=== PATIENT | female | born 1965 ===

== ENCOUNTER 2024-03-30 15:05 | Emergency (ER) | payer MEDICAID, OTHER ==
[~2024-03-30] VITALS: Ht 162.6 cm; Wt 70.5 kg
[2024-03-30 15:20] VITALS: PULSE 61; RESP 17; O2SAT 97
--- NOTE | 2024-03-30 15:34 | ED.PDOC ---
Altered Mental Status HPI Comments 59 y.o female presents to the ED via EMS for an evaluation of a syncopal episode today. Patient reports she was at the [employer], began feeling hot and lightheaded and lost consciousness. Patient did have positive urine incontinence noted. Upon ED arrival, patient reports feeling better and lightheadedness has s ubsided. EMS gave 500mL bolus en route. Patient denies cardiac, endocrinology history, CVA or TIA. Patient denies any medical history. Patient's voice was unusual and states that her voice had changed approximately two months ago for unknown reasons. Patient denies any recent travel or new food sources. Vital signs were stable on arrival. Chief Complaint: Syncope Time Seen by MD: 15:30 Reviewed Notes: Nurses Notes, [employer] Chief Notes, Medications, Allergies Allergies: Coded Allergies: NO KNOWN ALLERGIES (Unverified , 03/30/24) Information Source: Patient, Emergency Med Personnel Mode of Arrival: EMS Severity: Moderate Timing: Minutes Duration: Minutes Prehospital treatment: None Quality: Decreased Alertness Recent: None History of: None Associated Signs and Symptoms: None Past Medical History PAST MEDICAL HISTORY: Denies Surgical History: Denies all surgeries Family History Family History: Reviewed,noncontributory to illness Social History Smoker: Non-Smoker Alcohol: Denies ETOH Use Drugs: Denies Drug Use Lives In: Home Constitutional: denies: chills, diaphoresis, fatigue, fever, malaise, sweats, weakness, others EENTM: denies: blurred vision, double vision, ear bleeding, ear discharge, ear drainage, ear pain, ear ringing, eye pain, eye redness, hearing loss, mouth pain, mouth swelling, nasal discharge, nose bleeding, nose congestion, nose pain, photophobia, tearing, throat pain, throat swelling, voice changes, others Respiratory: denies: cough, hemoptysis, orthopnea, SOB at rest, shortness of breath, SOB with excertion, stridor, wheezing, others Cardiovascular: reports: lightheadedness, syncope; denies: chest pain, dizzy spells, diaphoresis, Dyspnea on exertion, edema, irregular heart beat, left arm pain, palpitations, PND, others Gastrointestinal: denies: abdomen distended, abdominal pain, blood streaked bowels, constipated, diarrhea, dysphagia, difficulty swallowing, hematemesis, melena, nausea, poor appetite, poor fluid intake, rectal bleeding, rectal pain, vomiting, others Genitourinary: reports: incontinence (one episode urine ); denies: abnormal vagina bleeding, burning, dyspareunia, dysuria, flank pain, frequency, hematuria, pain, , vagina discharge, urgency, others Neurological: denies: dizziness, fainting, headache, left sided numbness, left sided weakness, numbness, paresthesia, pre-existing deficit, right sided numbness, right sided weakness, seizure, speech problems, tingling, tremors, weakness, others Musculoskeletal: denies: back pain, gout, joint pain, joint swelling, muscle pain, muscle stiffness, neck pain, others Integumetry: denies: bruises, change in color, change in hair/nails, dryness, laceration, lesions, lumps, rash, wounds, others Allergic/Immunocompromised: denies: Difficulty Healing, Frequent Infections, Hives, Itching, others Hematologic/Lymphatic: denies: anemia, blood clots, easy bleeding, easy bruising, swollen glands, others Endocrine: denies: excessive hunger, excessive sweating, excessive thirst, excessive urination, flushing, intolerance to cold, intolerance to heat, unexplained weight gain, unexplained weight loss, others Psychiatric: denies: anxiety, bipolar disorder, depression, hopeless, panic disorder, schizophrenia, sleepless, suicidal, others All Other Systems: Reviewed and Negative Physical Exam General Appearance: No Apparent Distress (Patient was in no distress at time of evaluation.), Normal HEENT: Head (Unremarkable cranial evaluation. No signs of trauma. No skull depressions or deformities.), Normal ENT Inspection, Pharynx Normal, TMs Normal, Other (Neck soft tissue was unremarkable for any definitive mass formation. No goiter appreciated. No signs of trauma.) Neck: Full Range of Motion, Non-Tender, Normal, Normal Inspection Respiratory: Chest Non-Tender, Lungs Clear, No Accessory Muscle Use, No Respiratory Distress, Normal Breath Sounds Cardiovascular: No Edema, No JVD, No Murmur, No Gallop, Normal Peripheral Pulses, Regular Rate/Rhythm Breast Exam: Deferred Gastrointestinal: No Organomegaly, Non Tender, No Pulsatile Mass, Normal Bowel Sounds, Soft Genitalia: Deferred Pelvic: Deferred Rectal: Deferred Extremities: No calf tenderness, Normal capillary refill, Normal inspection, Normal range of motion, Non-tender, No pedal edema Musculoskeletal : Apperance: Normal Neurologic: Alert, No Motor Deficits, Normal Affect, Normal Mood, No Sensory Deficits Cerebellar Function: Normal Reflexes: Normal Skin: Dry, Normal Color, Warm Lymphatic: No Adenopathy Was a procedure done? Was a procedure done?: No Differential Diagnosis (ALOC) Differential Diagnosis: Dehydration, Hypoxemia, Seizure, Closed Head Injury, CVA, Heart Failure, Other (Vasovagal, sepsis, acute coronary syndrome) Other Differential Diagnosis Hypotension X-Ray, Labs, Meds, VS Vital Signs Date Time Temp Pulse Resp B/P (MAP) Pulse Ox O2 Delivery O2 Flow Rate FiO2 03/30/24 20:00 98.8 78 15 125/65 (85) 97 98.8 03/30/24 19:23 Room Air* 0 21 03/30/24 19:23 99.3 81 12 125/65 (85) 98 99.3 03/30/24 19:00 79 17 125/65 (85) 96 03/30/24 17:00 68 17 115/62 (79) 98 03/30/24 16:03 63 03/30/24 15:25 65 03/30/24 15:20 94.7 63 19 106/61 (76) 98 03/30/24 15:20 98.4 61 17 107/63 (78) 97 98.4 03/30/24 15:20 61 17 97 Room Air* 0 21 Lab Test 03/30/24 20:47 03/30/24 15:39 03/30/24 14:33 Range/Units Urine Color Colorless Yellow Urine Clarity Clear Clear Urine pH 7.0 5.0-9.0 Urine Specific [place] 1.012 1.001-1.035 Urine Protein Negative Negative Urine Ketones Negative Negative Urine Blood Negative Negative /uL Urine Nitrite Negative Negative Urine Bilirubin Negative Negative Urine Urobilinogen Normal Negative mg/dL Urine Leukocyte Esterase Negative Negative /uL Urine RBC <1 0 - 4 /hpf Urine Microscopic WBC 2 0-5 /HPF Urine Squamous Epithelial Cells Few <5 /hpf Urine Bacteria Few H None Seen /hpf Urine Glucose Normal Normal mg/dL White Blood Count 7.3 4.4-10.8 10^3/uL Red Blood Count 4.26 4.0-5.20 10^6/uL Hemoglobin 13.2 12.2-16.2 g/dL Hematocrit 39.6 36.0-46.0 % Mean Corpuscular Volume 92.9 80.0-100.0 fL Mean Corpuscular Hemoglobin 30.8 28.0-32.0 pg Mean Corpuscular Hemoglobin Concent 33.2 32.0-36.0 g/dL Red Cell Distribution Width 14.0 11.8-14.3 % Platelet Count 236 140-450 10^3/uL Mean Platelet Volume 8.8 6.9-10.8 fL Neutrophils (%) (Auto) 69.2 37.0-80.0 % Lymphocytes (%) (Auto) 23.6 10.0-50.0 % Monocytes (%) (Auto) 5.7 0.0-12.0 % Eosinophils (%) (Auto) 0.9 0.0-7.0 % Basophils (%) (Auto) 0.6 0.0-2.0 % Neutrophils # (Auto) 5.0 1.6-8.6 10 ^3/uL Lymphocytes # (Auto) 1.7 0.4-5.4 10 ^3/uL Monocytes # (Auto) 0.4 0-1.3 10 ^3/uL Eosinophils # (Auto) 0.1 0-0.8 10 ^3/uL Basophils # (Auto) 0 0-0.2 10 ^3/uL Nucleated Red Blood Cells 0.0 % Sodium Level 144 136-145 mmol/L Potassium Level 3.7 3.5-5.1 mmol/L Chloride Level 111 H 98-107 mmol/L Carbon Dioxide Level 29 20-31 mmol/L Anion Gap 4 L 5-15 Blood Urea Nitrogen 16 9-23 mg/dL Creatinine 0.79 0.550-1.02 mg/dL Glomerular Filtration Rate Calc 87 >90 mL/min BUN/Creatinine Ratio 20.3 H 10.0-20.0 Serum Glucose 135 H 74-106 mg/dL Calcium Level 8.8 8.7-10.4 mg/dL Troponin I High Sensitivity < 3 L 3 L </=34 ng/L B-Type Natriuretic Peptide 10.50 0-100 pg/mL Lipase 25 12-53 U/L Current Medications Medications (Trade) Dose Ordered Sig/Юлия Route Start Time Stop Time Status Last Admin Sodium Chloride 1,000 ml @ 1,000 mls/hr Q1H ONCE IV 03/30/24 15:30 03/30/24 16:29 DC 03/30/24 16:04 Acetaminophen/ Hydrocodone Bitart ([place] 5/325MG Tab) 1 tab ONCE ONCE PO 03/30/24 19:45 03/30/24 19:46 DC 03/30/24 19:[address] [address] Ph: [phone] DIAGNOSTIC IMAGING Diagnostic Imaging Report : [id number] Signed PATIENT: FLORIDALMA ENRIQUE ACCT: [id number] UNIT: [id number] : 1965 LOC: ER ROOM / BED: / AGE / SEX: 59 / F ADM STATUS: REG ER SERVICE 29 ORDERING PHYSICIAN: VENKATA CUETO PAC PROCEDURE(s): HWOCT - HEAD WITHOUT CONTRAST REASON: ALOC ORDER NUMBER(s): [id number], ACCESSION NUMBER(s): [id number] CLINICAL INFORMATION: 59 years old, Female; acute loss of consciousness. TECHNIQUE: Axial imaging was obtained through the brain without contrast. Coronal and sagittal reformatted images were obtained, reviewed, and stored. Images were reviewed in brain and bone windows. All CT scans at this medical facility are performed using dose modulation techniques as appropriate to a performed exam including the following: Automated exposure control was utilized; adjustment of the MA and/or KV according to patient size; and use of iterative reconstruction technique. CTDIvol = 52.38 mGy DLP = 838.69 mGy-cm COMPARISON: None FINDINGS: There is no acute intracranial hemorrhage or extraaxial fluid collection. No mass effect or midline shift. The ventricles and sulci are within normal limits in size for age. Basal cisterns are patent. The calvarium is unremarkable. Paranasal sinuses and mastoid air cells are clear. IMPRESSION: No CT evidence of acute intracranial abnormality. ATED BY: JAYDEN WARREN DO DICTATED DATE/TIME: 03/30/241614 SIGNED BY: JAYDEN WARREN DO SIGNED DATE/TIME: 03/30/241614 CC: [address] [address] Ph: [phone] DIAGNOSTIC IMAGING Diagnostic Imaging Report : [id number] Signed PATIENT: FLORIDALMA ENRIQUE ACCT: [id number] UNIT: [id number] : 1965 LOC: ER ROOM / BED: / AGE / SEX: 59 / F ADM STATUS: REG ER SERVICE 1530 ORDERING PHYSICIAN: VENKATA CUETO PAC PROCEDURE(s): NKICT - NECK WITHOUT CONTRAST REASON: Aphasia and dysphagia ORDER NUMBER(s): [id number], ACCESSION NUMBER(s): [id number] EXAM: CT NECK WITHOUT CONTRAST INDICATION: Aphasia and dysphagia EXAM DATE: 03/30/2024 03:50 PM COMPARISON: None TECHNIQUE: Multiple axial CT images of the neck were obtained using bone algorithm. Axial and coronal reformatting was done. Bone and soft tissue windows were reviewed. Radiation Dose Information: CT Dose: CTDI volume is 20.68 mGy. Dose-length product is 570.24 mGy*cm Findings: Limited evaluation given noncontrast technique. Nasopharynx, oropharynx, hypopharynx, and larynx are normal in caliber without evidence of focal mass. Parotid, submandibular, and sublingual glands are within normal limits. The tongue is unremarkable. Thyroid gland within normal limits. No evidence of superior mediastinal lymphade nopathy. No evidence of significant cervical lymphadenopathy. Musculoskeletal structures grossly unremarkable with no evidence of acute osseous abnormality. Straightening of the cervical lordosis which may be positional versus muscle spasm. No definite masses. Impression: 1. Limited evaluation given noncontrast technique. 2. No evidence of an acute fracture or definite masses. 3. Straightening of the cervical lordosis which may be positional versus muscle spasm. ATED BY: MARY VALENZUELA DO DICTATED DATE/TIME: 03/30/241627 SIGNED BY: MARY VALENZUELA DO SIGNED DATE/TIME: 03/30/241627 CC: X-Ray, Labs, Meds, VS Comment All studies performed in the ED were evaluated by me personally. Serum laboratories and urinalysis were unremarkable for any systemic concerns. EKG revealed a sinus rhythm with a rate of 65. RSR in V1 or V2 with a KS interval of 154 and a QT interval 432. Relatively unremarkable EKG. Imaging study of head and soft tissue neck were unremarkable for any acute findings. No intracranial masses or soft tissue concerns with in the neck. Patient appears to have had a fainting event. Advised patient utilize good hydration and healthy nutrition and additionally, follow up with primary care provider for discussions related to today's visit. Time of 1ST Reevaluation: 21:25 Reevaluation 1ST: Improved Consultation: PCP Patient Education/Counseling: Diagnosis, Treatment, Prognosis Family Education/Counseling: Diagnosis, Treatment, No Family Present Departure 1 Departure Time of Disposition: 21:25 Impression: Primary Impression: Vasovagal episode Disposition: HOME / SELF CARE / HOMELESS Condition: Stable Additional Instructions: Advised patient to follow up with her primary care provider for discussions related to today's events. Discharged With: Self, Friend Critical Care Note Critical Care Time?: No Stability Stability form required: No I personally scribed for VENKATA CUETO PAC ([email or web address]) on 03/30/24 at 15:34. Elec tronically submitted by Jelly Weber ([facility]). I personally scribed for VENKATA CUETO PAC ([email or web address]) on 03/30/24 at 18:54. Electro nically submitted by Jelly Weber ([facility]). VENKATA CUETO PAC Mar 30, 2024 15:34
[2024-03-30 15:57] LABS: Basophils # (auto) 0 10 ^3/uL (0-0.2); Basophils % (auto) 0.6 % (0.0-2.0); Eosinophils # (auto) 0.1 10 ^3/uL (0-0.8); Eosinophils % (auto) 0.9 % (0.0-7.0); Hematocrit 39.6 % (36.0-46.0); Hemoglobin 13.2 g/dL (12.2-16.2); Lymphocytes # (auto) 1.7 10 ^3/uL (0.4-5.4); Lymphocytes % (auto) 23.6 % (10.0-50.0); Mean Corpuscular Hemoglobin 30.8 pg (28.0-32.0); Mean Corpuscular Hgb Conc. 33.2 g/dL (32.0-36.0); Mean Corpuscular Volume 92.9 fL (80.0-100.0); Monocytes # (auto) 0.4 10 ^3/uL (0-1.3); Monocytes % (auto) 5.7 % (0.0-12.0); Neutrophils % (auto) 69.2 % (37.0-80.0); Platelet Count (auto) 236 10^3/uL (140-450); Red Blood Cells 4.26 10^6/uL (4.0-5.20); White Blood Cell 7.3 10^3/uL (4.4-10.8)
--- NOTE | 2024-03-30 16:02 | ECG ---
[facility] Test Date: 2024-03-30 Test Time: 15:25:43 Pat Name: FLORIDALMA ENRIQUE Department: er Room: Gender: F Boarding Room Fixer: lisa : 1965 Requested By: VENKATA CUETO Order Number: [id number] Reading MD: Measurements Intervals [place] Rate: 65 P: 68 NM: 154 QRS: 54 QRSD: 96 T: 60 QT: 432 QTc: 450 Interpretive Statements Sinus rhythm RSR' in V1 or V2, right VCD or RVH Please click the below link to view image of tracing.
[2024-03-30] MEDS: SODIUM CHLORIDE 0.9% 1,000 ML IV ONE (16:04)
[2024-03-30 16:05] LABS: Potassium 3.7 mmol/L (3.5-5.1); Sodium 144 mmol/L (136-145)
[2024-03-30 16:06] LABS: Anion Gap 4 (5-15); Calcium 8.8 mg/dL (8.7-10.4); Carbon Dioxide 29 mmol/L (20-31)
[2024-03-30 16:11] LABS: BUN/Creatinine Ratio 20.3 (10.0-20.0); Blood Urea Nitrogen 16 mg/dL (9-23); Lipase 25 U/L (12-53)
[2024-03-30 16:14] LABS: Chloride 111 mmol/L (98-107); Glucose 135 mg/dL (74-106)
--- NOTE | 2024-03-30 16:17 | DVH ---
CLINICAL INFORMATION: 59 years old, Female; acute loss of consciousness. TECHNIQUE: Axial imaging was obtained through the brain without contrast. Coronal and sagittal refor matted images were obtained, reviewed, and stored. Images were reviewed in brain and bone windows. A ll CT scans at this medical facility are performed using dose modulation techniques as appropriate to a performed exam including the following: Automated exposure control was utilized; adjustment of the MA and/or KV according to patient size; and use of iterative reconstruction technique. CTDIvol = 52.38 mGy DLP = 838.69 mGy-cm COMPARISON: None FINDINGS: There is no acute intracranial hemorrhage or extraaxial fluid collection. No mass effect o r midline shift. The ventricles and sulci are within normal limits in size for age. Basal cisterns a re patent. The calvarium is unremarkable. Paranasal sinuses and mastoid air cells are clear. IMPRESSION: No CT evidence of acute intracranial abnormality.
--- NOTE | 2024-03-30 16:30 | DVH ---
EXAM: CT NECK WITHOUT CONTRAST INDICATION: Aphasia and dysphagia EXAM DATE: 03/30/2024 03:50 PM COMPARISON: None TECHNIQUE: Multiple axial CT images of the neck were obtained using bone algorithm. Axial and coronal reformatting was done. Bone and soft tissue windows were reviewed. Radiation Dose Information: CT Dose: CTDI volume is 20.68 mGy. Dose-length product is 570.24 mGy*cm Findings: Limited evaluation given noncontrast technique. Nasopharynx, oropharynx, hypopharynx, and larynx are normal in caliber without evidence of focal mass . Parotid, submandibular, and sublingual glands are within normal limits. The tongue is unremarkable. Thyroid gland within normal limits. No evidence of superior mediastinal lymphadenopathy. No evidence of significant cervical lymphadenopathy. Musculoskeletal structures grossly unremarkable with no evidence of acute osseous abnormality. Straightening of the cervical lordosis which may be positional versus muscle spasm. No definite masses. Impression: 1. Limited evaluation given noncontrast technique. 2. No evidence of an acute fracture or definite masses. 3. Straightening of the cervical lordosis which may be positional versus muscle spasm.
[2024-03-30] MEDS: HYDROcodone-ACET 5/325MG TAB PO ONE (19:54)
[2024-03-30 20:00] VITALS: TEMP 98.8
[2024-03-30 21:15] LABS: Urine Bacteria FEW /hpf (None Seen); Urine Blood Negative /uL (Negative); Urine Clarity Clear (Clear); Urine Color Colorless (Yellow); Urine Protein, UAD Negative (Negative); Urine Specific Gravity 1.012 (1.001-1.035); Urine Squamous Epithelial Cell FEW /hpf (<5); Urine Urobilinogen Normal (Negative); Urine WBC 2 /HPF (0-5)
[2024-03-30 22:00] VITALS: BP 116/66; PULSE 69; RESP 19; O2SAT 96
== END 2024-03-30 22:05 | disposition home or self-care (01) ==
LOC: ER 15:05 → EDBD 15:05 → ER 22:05
DX: R55 Syncope and collapse (principal)
CPT/HCPCS: 36415; 70450; 70490; 80048; 81001; 83690; 83880; 84484; 85025; 93005; 96360; 99285; J7030